=== PATIENT | male | born 1955 | race Caucasian/White ===

== ENCOUNTER 2022-05-24 10:03 | Day surgery (SDC) | payer MEDICARE ==
[2022-05-17 14:50] LABS: BASOPHILS # (AUTO) 0.1 X10'3 (0-0.2); BASOPHILS % (AUTO) 1.5 % (0-1); EOSINOPHILS # (AUTO) 0.2 X10'3 (0-0.9); EOSINOPHILS % (AUTO) 3.1 % (0-6); LYMPHOCYTES # (AUTO) 2.3 X10'3 (1.1-4.8); MEAN CORPUSCULAR HEMOGLOBIN 29.3 PG (27.0-31.0); MEAN CORPUSCULAR HGB CONC 34.9 g/dL (33.0-36.5); MEAN CORPUSCULAR VOLUME 83.8 FL (78-98); MEAN PLATELET VOLUME 7.2 FL (7.4-10.4); MONOCYTES # (AUTO) 0.6 X10'3 (0-0.9); NEUTROPHILS # (AUTO) 3.1 X10'3 (1.8-7.7); NEUTROPHILS % (AUTO) 49.4 % (42-75); PRE OP HEMATOCRIT 38.8 % (42.0-52.0); PRE OP HEMOGLOBIN 13.6 g/dL (14.0-17.9); PRE OP PLATELET COUNT 215 X10'3 (140-440); RED BLOOD COUNT 4.63 X10'6 (4.70-6.10); RED CELL DISTRIBUTION WIDTH 12.5 % (11.5-14.5)
[2022-05-17 15:04] LABS: ALBUMIN 4.3 G/DL (3.4-5.0); ALBUMIN/GLOBULIN RATIO 1.6 (1.1-1.5); ALKALINE PHOSPHATASE 69 IU/L (46-116); BLOOD UREA NITROGEN 18 MG/DL (7-18); BUN/CREATININE RATIO 15.5 (5.4-32.0); CALCIUM 9.1 MG/DL (8.5-10.1); CHLORIDE 102 MMOL/L (99-107); CREATININE 1.16 MG/DL (0.60-1.10); PRE OP ALT 28 U/L (30-65); PRE OP ANION GAP 9 (8-16); PRE OP AST 24 U/L (10-37); PRE OP BILIRUB, TOTAL 0.6 MG/DL (0.0-1.0); PRE OP GLUCOSE 101 MG/DL (70-104); PRE OP POTASSIUM 3.8 MMOL/L (3.4-5.1); PRE OP SODIUM 141 MMOL/L (135-145); TOTAL CARBON DIOXIDE 29.8 MMOL/L (24-32); eGFR 63 ML/MIN
[2022-05-24] VITALS (12 sets, daily range): BP systolic 119–172; BP diastolic 51–93
[~2022-05-24] VITALS: Ht 182.9 cm; Wt 95.1 kg
[~2022-05-24 10:03] MED LIST: AMLO5TAB16 PO; BUPR300T86 PO; IRBE1TAB31 PO; TADA10TA14 PO; ceFAZolin inj. 2,000 MG in dextrose 5%-water 100 ML IV ONE; famotidine 20mg tablet PO ONE; ringers solution, lacted 1,000 ML IV SCH
[2022-05-24] MEDS ORDERED: LIDOcaine 0.5% (5mg/ml) 50ml vial ONE (13:38)
[2022-05-24] MEDS ORDERED: midazolam 1 mg/ML 2ml injection ONE (13:39)
[2022-05-24] MEDS ORDERED: fentaNYL /PF 50mcg/ml 5ml ampule ONE (13:42)
[2022-05-24] MEDS ORDERED: propofol inj 20 ML IV ONE ×3 (13:56)
[2022-05-24] MEDS ORDERED: BUPIVAcaine/PF 2.5mg/ml (0.25%) 10ml vial ONE (14:30)
--- NOTE | 2022-05-24 14:40 | NUR ---
PT ARRIVED TO [facility]IA [facility], ACCOMPANIED BY DR WELLER- ANESTHESIA REPORT GIVEN, PT AWAKE, VSS, DENIES PAIN, CSM-INTACT, DRSG-CDI.
[2022-05-24] MEDS ORDERED: morphine 4 MG/ML inj SYRINge ONE (14:54)
[2022-05-24] MEDS ORDERED: ketorolac trometh. 30mg/ml inj. IV ONE (15:05)
[2022-05-24] MEDS ORDERED: acetaminophen 1,000mg/100ml IV 100 ML IV PRN (15:05)
[2022-05-24] MEDS ORDERED: morphine 4 MG/ML inj SYRINge IV PRN (15:05)
[2022-05-24] MEDS ORDERED: ondansetron/PF 4mg/2ml inj IV PRN (15:05)
[2022-05-24] MEDS ORDERED: labetalol 20mg/4ml (5mg/ml) syringe IV PRN (15:05)
[2022-05-24] MEDS ORDERED: hydrALAZINE 20mg/ml inj. IV PRN (15:05)
[2022-05-24] MEDS ORDERED: ringers solution, lacted 1,000 ML IV SCH (15:05)
[2022-05-24] MEDS ORDERED: proCHLORperazine 10 MG/2 ml inj IV PRN (15:05)
[2022-05-24] MEDS ORDERED: morphine 2 MG/ML inj. syringe IV PRN (15:05)
[2022-05-24] MEDS ORDERED: meperidine/PF 25mg/ml syringe IV PRN ×3 (15:05)
[2022-05-24] MEDS ORDERED: meperidine/PF 25mg/ml syringe ONE (15:06)
--- NOTE | 2022-05-24 15:30 | NUR ---
PT WAS PAINFUL AND SHIVERING-WARM BLANKETS GIVEN ALONG WITH PAIN MEDS, VSS, PT RESTING QUIETLY.
--- NOTE | 2022-05-24 16:30 | NUR ---
PT ABLE TO GET DRESSED W/O DIFFICULTY, VSS, PAIN MINIMAL 2/10-CSM INTACT, DRSG CDI, D/C INSTRUCTIONS GIVEN TO PT-ALL QUESTIONS ANSWERED, TAKEN VIA W/C TO [facility]HIC[facility] FOR TRANSPORT HOME.
== END 2022-05-24 16:30 | disposition home or self-care (01) ==
LOC: PAS 10:03
PROVIDERS: ATTEND Orthopaedic Surgery Hand Surgery
DX: M18.12 Unilateral primary osteoarthritis of first carpometacarpal joint, left hand (principal); I10 Essential (primary) hypertension; F41.9 Anxiety disorder, unspecified; Z79.899 Other long term (current) drug therapy; Z98.890 Other specified postprocedural states; Z96.651 Presence of right artificial knee joint; Z96.641 Presence of right artificial hip joint
CPT/HCPCS: 25312; 25447; 36415; 80053; 82948; 85025; 87811; 93005; J0690; J1885; J2175; J2250; J2270; J2704; J3010; J3490; J7030; J7060; J7120; Z7506; Z7508; Z7512; A4215; A4618; A7000